=== PATIENT | male | born 1995 | race Hispanic/Latino ===

== ENCOUNTER 2017-05-28 17:25 | Emergency (ER) | payer BC ==
[~2017-05-28] VITALS: Ht 175.3 cm; Wt 79.4 kg
[2017-05-28] MEDS ORDERED: ONDANSETRON HCL INJ 2 MG/ML VIAL IV STA (18:07)
[2017-05-28] MEDS ORDERED: SODIUM CHLORIDE 0.9% 1000ML 1,000 ML IV STA (18:07)
[2017-05-28 18:37] LABS: BASOPHILS % 0.2 % (0.0-1.0); HEMATOCRIT 48.1 % (38.2-49.6); HEMOGLOBIN 16.1 g/dL (14.0-18.0); LYMPHOCYTES # (AUTO) 0.4 (1.0-3.2); LYMPHOCYTES % 3.3 % (18.0-39.1); MEAN CORPUSCULAR HEMOGLOBIN 29.4 pg (28-32); MEAN CORPUSCULAR HGB CONC 33.5 g/dL (31-35); MEAN CORPUSCULAR VOLUME 87.9 fL (81-99); MONOCYTES # (AUTO) 0.6 (0.2-0.8); MONOCYTES % 5.6 % (4.4-11.3); NEUTROPHILS # (AUTO) 9.6 (2.1-6.9); NEUTROPHILS % 90.7 % (38.7-80.0); PLATELET COUNT 294 x10e3/uL (140-360); RED BLOOD COUNT 5.47 x10e6/uL (4.3-5.7); RED CELL DISTRIBUTION WIDTH 13.2 % (11.7-14.4)
[2017-05-28 18:54] LABS: ALANINE AMINOTRANSFERASE 21 IU/L (0-55); ALBUMIN 4.4 g/dL (3.5-5.0); ALBUMIN/GLOBULIN RATIO 1.2 (0.8-2.0); ALKALINE PHOSPHATASE 61 IU/L (40-150); ANION GAP 14.8 mmol/L (8-16); BLOOD UREA NITROGEN 16 mg/dL (7-26); BUN/CREATININE RATIO 17 (6-25); CALCIUM 9.8 mg/dL (8.4-10.2); CARBON DIOXIDE 26 mmol/L (22-29); CHLORIDE 104 mmol/L (98-107); CREATININE, SERUM 0.95 mg/dL (0.72-1.25); EST GLOMERULAR FILTRATION RATE > 60 ML/MIN (60-); GLUCOSE 111 mg/dL (74-118); POTASSIUM 3.8 mmol/L (3.5-5.1); SODIUM 141 mmol/L (136-145)
[2017-05-28 19:57] LABS: LYMPHOCYTES % (MANUAL) 6 % (19-48); METAMYELOCYTES % (MANUAL) 1 % (0-0); MONOCYTES % (MANUAL) 6 % (3.4-9.0); NEUTROPHILS % (MANUAL) 85 % (40-74); PLATELET ESTIMATE ADEQUATE; PLATELET MORPHOLOGY COMMENT NORMAL; RBC MORPHOLOGY COMMENT NORMAL
== END 2017-05-28 21:40 | disposition home or self-care (01) ==
LOC: ER 17:25
DX: R11.2 Nausea with vomiting, unspecified (principal); R19.7 Diarrhea, unspecified; K52.9 Noninfective gastroenteritis and colitis, unspecified
CPT/HCPCS: 36415; 80053; 85025; 99283; J2405; J7030

== ENCOUNTER 2018-11-09 20:25 | Emergency (ER) | payer BC ==
[~2018-11-09] VITALS: Ht 175.3 cm; Wt 79.4 kg
--- OUTSIDE RECORDS SUMMARY | 2018-11-09 20:27 | XMS REPORT ---
Author Author Mary Huston Organization [employer] Address Unknown Phone Unavailable Care Team Providers Care Revenue Field Auditor Name Role Phone Mary Huston CP Unavailable Allergies No Known Allergies Problems Problem Type Condition Code Onset Dates Condition Status Problem Non-seasonal allergic rhinitis due to pollen J30.1 Active Problem Vitamin D deficiency E55.9 Active Problem Current moderate episode of major depressive disorder without prior episode F32.1 Active Problem Mild intermittent asthma without complication J45.20 Active Medications No Known Medications Results No Known Results Summary Purpose [employer] Submission
--- OUTSIDE RECORDS SUMMARY | 2018-11-09 20:27 | XMS REPORT | Continuity of Care Document ---
Author Author Moe juma [facility] Interface Address Unknown Phone Unavailable Problems Problem Status Onset Date Classification Date Reported Comments Source Non-seasonal allergic rhinitis due to pollen Active Problem 09/26/2018 2.16840.1.224114.4.391.11.39332 Vitamin D deficiency Active Diagnosis 09/26/2018 2.16840.1.403115.4.391.11.89407 Current moderate episode of major depressive disorder without prior episode Active Problem 09/26/2018 2.16840.1.950729.4.391.11.04554 Mild intermittent asthma without complication Active Problem 09/26/2018 2.16840.1.877705.4.391.11.26506 STD exposure Active Diagnosis 09/26/2018 2.840.1.525958.4.391.11.84338 Medications Medication Details Route Status Patient Instructions Ordering Provider Order Date Source Lexapro 1 tablet Orally Active 10 mg Orally Once a day Robel 09/10/2018 2.16840.1.111495.4.391.11.00973 Nasacort Allergy 24HR not defined NA Active Robel 03/05/2018 2.16840.1.559311.4.391.11.96075 Anoro Ellipta not defined NA Active Robel 03/05/2018 2.16840.1.428484.4.391.11.11060 Xyzal 5 mg Tab not defined NA Active Robel 03/05/2018.840.1.904938.4.391.11.08518 ergocalciferol (vitamin D2) 50,000 unit capsule 1 capsule orally Active orally once a week Robel 840.1.347321.4.391.11.21989 Insulin Syringe 2 Inject subcutaneously Active 31G X 5/16 subcutaneously every other day Robel 840.1.120047.4.391.11.96145 Ergocalciferol 1 capsule Orally Active 95714 UNIT Orally once a week Robel 2.16.840.1.921936.4.391.11.84539 Benadryl Allergy Childrens 20 ml as needed Orally Active 12.5 MG/5ML Orally every 8 hrs Robel 2.16.840.1.381156.4.391.11.11379 Allergies, Adverse Reactions, Alerts Substance Category Reaction Severity Reaction type Status Date Reported Comments Source Zithromax Adverse Reaction Severe blisters Adverse Reaction Active 09/10/2018 2.16.840.1.089739.4.391.11.43204 Immunizations Immunization Date Given Site Status Last Updated Comments Source Results Order Name Results Value Reference Range Date Interpretation Comments Source Vital Signs Vital Sign Value Date Comments Source Weight 181.0 09/10/2018 2.16.840.1.387406.4.391.11.16814 Height 70 09/10/2018 2.16.840.1.529877.4.391.11.67594 Temperature Oral (F) 97.1 F 09/10/2018 2.16.840.1.640482.4.391.11.06936 Heart Rate 81 09/10/2018 2.16.840.1.869588.4.391.11.76242 Diastolic (mm Hg) 83 09/10/2018 2.16.840.1.742912.4.391.11.18446 Systolic (mm Hg) 117 09/10/2018 2.16.840.1.783145.4.391.11.40855 Encounters Location Location Details Encounter Type Encounter Number Reason For Visit Attending Provider ADM Date DC Date Status Source Procedures Procedure Code Date Perfomer Comments Source
--- OUTSIDE RECORDS SUMMARY | 2018-11-09 20:27 | XMS REPORT ---
Author Author Mary Huston [facility] [employer] Address Unknown Phone Unavailable Care Team Providers Care Office Support Associate Name Role Phone Mary Huston CP Unavailable Allergies, Adverse Reactions, Alerts Substance Reaction Event Type Zithromax Severe blisters Non Drug Allergy Problems Problem Type Condition Code Onset Dates Condition Status Assessment Vitamin D deficiency E55.9 Active Problem Non-seasonal allergic rhinitis due to pollen J30.1 Active Problem Vitamin D deficiency E55.9 Active Problem Current moderate episode of major depressive disorder without prior episode F32.1 Active Assessment STD exposure Z20.2 Active Assessment Current moderate episode of major depressive disorder without prior episode F32.1 Active Problem Mild intermittent asthma without complication J45.20 Active Medications Medication Code System Code Instructions Start Date End Date Status Dosage ergocalciferol (vitamin D2) 50,[address] [facility] [id number] orally once a week Active 1 capsule Insulin Syringe [facility] 27846665454 31G X 5/16 subcutaneously every other day Active 2 Inject Nasacort Allergy 24HR [facility] [address] Mar 05, 2018 Active not defined Anoro Ellipta [facility] [address]-07 Mar 05, 2018 Active not defined Lexapro [facility] 60562224926 10 mg Orally Once a day September 10, 2018 Active 1 tablet Ergocalciferol [facility] 12817985004 23421 UNIT Orally once a week Active 1 capsule Benadryl Allergy Childrens [facility] 98809009390 12.5 MG/5ML Orally every 8 hrs Active 20 ml as needed Xyzal 5 mg Tab [facility] 0 Mar 05, 2018 Active not defined Vital Signs Date/Time: September 10, 2018 BMI 25.97 Index Weight 181.0 lbs Height 70 in Temperature 97.1 F Cardiac Monitoring Heart Rate 81 /min Blood Pressure Diastolic 83 mm Hg Blood Pressure Systolic 117 mm Hg Results Name Result Date Reference Range Unit Abnormality Flag RPR ----RPR Non-Reactive 20180910 Non-Reactive HIV 4th GEN w/ Reflexes ----HIV Ag/Ab 4th Gen Negative 20180910 Negative Chlamydia Ab IgM, IgG, IgA ----C psittaci IgA < 1:10 [id number] < 1:10 ----C psittaci IgG Comment 20180910 < 1:100 ----C psittaci IgM < 1:10 [id number] < 1:10 ----C pneumoniae IgA < 1:10 [id number] < 1:10 ----C pneumoniae IgG 1:100 [id number] < 1:100 * ----C trachomatis IgM < 1:10 [id number] < 1:10 ----C trachomatis IgG Comment [id number] < 1:100 ----C trachomatis IgA < 1:10 [id number] < 1:10 ----C pneumoniae IgM < 1:10 [id number] < 1:10 Gonorrhea by Amplified Detection (APTIMA) ----N gonorrhea by Amp Det ([facility]TIMA) Negative [id number] Negative ----Source [facility] Urine 20180910 Vitamin D 25-Hydroxy ----Vitamin D, 25-OH, Total 12.3 20180910 30.0-100.0 ng/mL L Summary Purpose [employer] Submission
--- OUTSIDE RECORDS SUMMARY | 2018-11-09 20:27 | XMS REPORT ---
Author Author [facility] Address Unknown Phone Unavailable Care Team Providers Care Chassis Driver Name Role Phone Unavailable Unavailable Problems This patient has no known problems. Allergies, Adverse Reactions, Alerts This patient has no known allergies or adverse reactions. Medications This patient has no known medications. Encounters Start Date/Time End Date/Time Encounter Type Admission Type Attending [facility] Facility Care Department Encounter ID 2018-10-14 06:48:00 2018-10-14 06:48:00 Emergency E [id number]
[2018-11-09] MEDS ORDERED: ASPIRIN 81 MG CHEW TAB PO ONE (21:15)
--- NOTE | 2018-11-09 21:41 | Diagnostic Imaging Report ---
EXAMINATION: CHEST 2 VIEWS INDICATION: ^CHEST PAIN WITH DEEP BREATHS ^Y COMPARISON: None available. FINDINGS: PA and lateral views TUBES and LINES: None. LUNGS: Lungs are well inflated. There is no evidence of pneumonia or pulmonary edema. PLEURA: No pleural effusion or pneumothorax. HEART AND MEDIASTINUM: The cardiomediastinal silhouette is unremarkable. BONES AND SOFT TISSUES: No acute osseous lesion. Soft tissues are unremarkable. UPPER ABDOMEN: No free air under the diaphragm. IMPRESSION: No acute thoracic abnormality. Signed by: Dr. Surendra Leonard MD on 11/09/2018 9:37 PM
[2018-11-09 21:57] LABS: BASOPHILS # (AUTO) 0.1 (0.0-0.1); BASOPHILS % 0.7 % (0.0-1.0); EOSINOPHILS # (AUTO) 0.8 (0.0-0.4); LYMPHOCYTES # (AUTO) 3.1 (1.0-3.2); LYMPHOCYTES % 33.2 % (18.0-39.1); MEAN CORPUSCULAR HEMOGLOBIN 29.8 pg (28-32); MEAN CORPUSCULAR HGB CONC 34.9 g/dL (31-35); MEAN CORPUSCULAR VOLUME 85.5 fL (81-99); MONOCYTES # (AUTO) 0.8 (0.2-0.8); NEUTROPHILS # (AUTO) 4.4 (2.1-6.9); NEUTROPHILS % 47.8 % (38.7-80.0); PLATELET COUNT 318 x10e3/uL (140-360); RED BLOOD COUNT 5.03 x10e6/uL (4.3-5.7); RED CELL DISTRIBUTION WIDTH 13.1 % (11.7-14.4)
[2018-11-09 22:11] LABS: ALANINE AMINOTRANSFERASE 38 IU/L (0-55); ALBUMIN 3.9 g/dL (3.5-5.0); ALBUMIN/GLOBULIN RATIO 1.1 (0.8-2.0); ALKALINE PHOSPHATASE 54 IU/L (40-150); ANION GAP 11.5 mmol/L (8-16); BLOOD UREA NITROGEN 14 mg/dL (7-26); BUN/CREATININE RATIO 17 (6-25); CARBON DIOXIDE 27 mmol/L (22-29); CHLORIDE 102 mmol/L (98-107); CREATINE KINASE 362 IU/L (30-200); CREATININE, SERUM 0.81 mg/dL (0.72-1.25); EST GLOMERULAR FILTRATION RATE > 60 ML/MIN (60-); GLUCOSE 97 mg/dL (74-118); POTASSIUM 3.5 mmol/L (3.5-5.1); SODIUM 137 mmol/L (136-145)
[2018-11-09 23:49] VITALS: BP 135/83
== END 2018-11-09 23:51 | disposition home or self-care (01) ==
LOC: ER 20:25
DX: R09.1 Pleurisy (principal); G40.909 Epilepsy, unspecified, not intractable, without status epilepticus
CPT/HCPCS: 36415; 71046; 80053; 82550; 82553; 84484; 85025; 85379; 93005; 99283